=== PATIENT | female | born 1950 | race African-American/Black ===

== ENCOUNTER 2016-09-04 09:24 | Emergency (ER) | payer OTHER ==
[2016-09-04 09:32] VITALS: TEMP 98; BMI 25.8
--- NOTE | 2016-09-04 10:25 | PDOC ---
History of Present Illness <Osorio Finnegan - Last Filed: 09/04/16 10:26> - General History Source: Patient Exam Limitations: No Limitations - History of Present Illness Initial Comments: 09/04/16 13:54 The patient is a 66 year old female, with a significant past medical history of Mitral valve prolapse, glaucoma, HTN and HLD, who presents to the emergency department with epistaxis onset today. She notes that she was on her way to work when she felt wetness on her nose and realized she was bleeding. She reports that the bleeding lasted for roughly 15 minutes before resolving on its own after applying pressure to her nose. She notes that she had a similar episode 4-5 years ago. She denies any rectal bleeding, vaginal bleeding or any recent bruising. She states that her apart[employer] building has been hotter than usual due to the heating system, causing her to have dry nostrils. The patient denies chest pain, shortness of breath, headache and dizziness. Denies fever, chills, nausea, vomit, diarrhea and constipation. Denies dysuria, frequency, urgency and hematuria. Allergies: Penicillins Past surgical history: None reported Social history: No alcohol, tobacco or drug use reported PMD - Dr. Angel Chow <Izaiah Alexandre - Last Filed: 09/04/16 13:55> - General Chief Complaint: Nasal Bleeding Stated Complaint: NOSE BLEED Time Seen by Provider: 09/04/16 10:02 Past History - Past Medical History Cardiac Disorders: Yes (MVP) HTN: Yes Hypercholesterolemia: Yes Other medical history: glucoma - Psycho/Social/Smoking Cessation Hx Anxiety: No Suicidal Ideation: No Smoking History: Never smoked Have you smoked in the past 12 months: No Information on smoking cessation initiated: No Hx Alcohol Use: No Drug/Substance Use Hx: No Substance Use Type: None <Osorio Finnegan - Last Filed: 09/04/16 10:26> <Izaiah Alexandre - Last Filed: 09/04/16 13:55> - Past Medical History Allergies/Adverse Reactions: Allergies Allergy/AdvReac Type Severity Reaction Status Date / Time Penicillins Allergy Swelling Verified 07/03/13 11:52 Home Medications: Ambulatory Orders Amlodipine Besylate [Norvasc -] 10 mg PO DAILY 09/04/16 Ibuprofen [Advil -] 200 mg PO TID 09/04/16 Propranolol HCl [Inderal] 80 mg PO DAILY 09/04/16 Review of Systems - Review of Systems Able to Perform ROS?: Yes Comments:: 09/04/16 13:54 CONSTITUTIONAL: No reported: Fever, Chills, Diaphoresis, Generalized Weakness, Malaise, Loss of Appetite HEENT: Reported: Epixtases. No reported: Rhinorrhea, Nasal Congestion, Throat Pain, Throat Swelling, Difficulty Swallowing, Mouth Swelling, Ear Pain, Eye Pain, Visual Changes CARDIOVASCULAR: No reported: Chest Pain, Syncope, Palpitations, Irregular Heart Rate, Lightheadedness, Peripheral Edema RESPIRATORY: No reported: Cough, Shortness of Breath, SOB with Exertion, Orthopnea, Wheezing , Stridor, Hemoptysis SKIN: No reported: Rash, Itching, Pallor HEMEATOLOGIC/IMMUNOLOGIC: No reported: Easy Bleeding, Easy Bruising, Lymphadenopathy, Frequent infections NEUROLOGIC: No reported: Headache, Focal Weakness, Paresthesias, Vertigo, Lightheadedness, Changes, Incontinence <Izaiah Alexandre - Last Filed: 09/04/16 13:55> *Physical Exam - Vital Signs Last Vital Signs Temp Pulse Resp BP Pulse Ox 98.0 F 83 18 180/100 95 09/04/16 09:28 09/04/16 09:28 09/04/16 09:28 09/04/16 09:28 09/04/16 09:28 <Osorio Finnegan - Last Filed: 09/04/16 10:26> - Vital Signs Last Vital Signs Temp Pulse Resp BP Pulse Ox 98.0 F 76 20 163/98 99 09/04/16 09:28 09/04/16 10:46 09/04/16 10:46 09/04/16 10:46 09/04/16 10:46 - Physical Exam Comments: 09/04/16 13:54 GENERAL: The patient is awake, alert, and fully oriented, Nontoxic - in no acute distress. HEAD: Normocephalic, atraumatic. EYES: extraocular movements intact, sclera anicteric, conjunctiva clear. ENT: No blood in the nares, no blood is present in the posterior oropharynx. Normal voice, Moist mucous membranes. NECK: Normal range of motion, supple LUNGS: Breath sounds equal, clear to auscultation bilaterally. No wheezes, no rhonchi, no rales. HEART: Regular rate and rhythm, without murmur, rub or gallop. ABDOMEN: Soft, nontender, normoactive bowel sounds. No guarding, no rebound.No CVA tenderness EXTREMITIES: Normal range of motion, no edema. NEUROLOGICAL: No facial assymetry, Normal speech, PSYCH: Normal mood, normal affect. SKIN: Warm, Dry, normal turgor, <Izaiah Alexandre - Last Filed: 09/04/16 13:55> Medical Decision Making - Medical Decision Making 09/04/16 10:18 66y F hx of htn, presents with complaint of bloody nose that stopped last sponatneously. pt notes her apartment is very warm and heat is on very high. No recent ENT procedures or complaints. no active bleeding currently, pts vitals noted hypertension. will dc the pt with pmd fu and ENT f/u if recurrent I discussed the physical exam findings, ancillary test results and final diagnoses with the patient. I answered all of the patient's questions. The patient was satisfied with the care received and felt comfortable with the discharge plan and treatment plan. The patient will call their primary care physician within 24 hours to arrange follow-up and will return to the Emergency Department with any new, persistent or worsening symptoms. A portion of this note was documented by scribe services under my direction. I have reviewed the details of the note, within reason, and agree with the documentation with the following case summary and management plan written by me <Osorio Finnegan - Last Filed: 09/04/16 10:26> *DC/Admit/Observation/Transfer - Discharge Dispostion Admit: No <Osorio Finnegan - Last Filed: 09/04/16 10:26> - Attestations Scribe Attestion: 09/04/16 13:55 Documentation prepared by Izaiah Alexandre, acting as center medical director for Osorio Finnegan MD <Izaiah Alexandre - Last Filed: 09/04/16 13:55> Diagnosis at time of Disposition: Epistaxis - Discharge Dispostion Disposition: HOME Condition at time of disposition: Improved - Referrals Referrals: Angel Chow MD [Primary Care Provider] - Gabriel Greer MD [Staff Physician] - - Patient Instructions Printed Discharge Instructions: DI for Nosebleed Additional Instructions: Return to the emergency department immediately with ANY new, persistent or worsening symptoms. Use a humidifier. You MUST call and follow up with your doctor within 3-4 for further evaluation of your symptoms. If the bloody noses are recurrent, follow up with an ENT doctor (referral given for Dr. Greer). Results were discussed with you. Please make sure your doctor reviews the results of your emergency evaluation. - Post Discharge Activity Work/School Note: Back to Work
[2016-09-04 10:47] VITALS: BP 163/98; PULSE 76
== END 2016-09-04 10:52 | disposition home or self-care (01) ==
LOC: JER 09:24
DX: R04.0 Epistaxis (principal); I34.1 Nonrheumatic mitral (valve) prolapse; H40.9 Unspecified glaucoma; I10 Essential (primary) hypertension; E78.5 Hyperlipidemia, unspecified
CPT/HCPCS: 99282-25